=== PATIENT | male | born 1965 | race Caucasian/White ===

== ENCOUNTER 2024-06-09 10:55 | Inpatient (IN) | payer OTHER ==
[~2024-06-09] VITALS: Ht 172.7 cm; Wt 88.7 kg
[2024-06-09] VITALS (37 sets, daily range): BP systolic 111–152; BP diastolic 65–105; PULSE 85–118; RESP 12–28; TEMP 37.3–37.4; O2SAT 92–97
[2024-06-09 11:39] LABS: HEMATOCRIT. 47.2 % (42.0-52.0); HEMOGLOBIN. 15.9 g/dL (14.0-18.0); MEAN CORPUSCULAR HEMOGLOBIN 31.3 pg (28.0-32.0); MEAN CORPUSCULAR HGB CONC 33.8 g/dL (31.0-37.0); MEAN CORPUSCULAR VOLUME 92.8 fL (80.0-94.0); MEAN PLATELET VOLUME 7.8 fl (7.4-10.4); PLATELET 280 x1000/uL (130-400); RED BLOOD CELL COUNT 5.08 mill/uL (4.7-6.1); RED CELL DISTRIBUTION WIDTH 13.3 % (11.6-14.6); WHITE BLOOD COUNT 19.2 x1000/uL (4.5-11.0)
[2024-06-09 11:49] LABS: DIFFERENTIAL COMMENT 1
[2024-06-09] MEDS: ASPIRIN 81MG TABLET PO ONE (11:52)
[2024-06-09 11:53] LABS: PARTIAL THROMBOPLASTIN TIME 25.8 sec (23.4-31.0); PROTHROMBIN TIME 10.3 sec (9.6-11.0)
[2024-06-09 11:57] LABS: CHLORIDE 100 mEq/L (98-107); SODIUM 134 mEq/L (136-145)
[2024-06-09 11:58] LABS: CALCIUM 10.1 mg/dL (8.7-10.4); CARBON DIOXIDE 22 mEq/L (21-32)
[2024-06-09 12:03] LABS: GLUCOSE 255 mg/dL (70-105); UREA NITROGEN BLOOD 15 mg/dL (9-23)
[2024-06-09 12:19] LABS: TROPONIN I HIGH SENSITIVITY 14840 ng/L (3.0-53)
[2024-06-09] MEDS: HEPARIN 5000 UNITS/ML VIAL IV ONE (12:37)
[2024-06-09] MEDS ORDERED: HEPARIN 1000 UNITS/ML 10ML ONE ×2 (13:35→13:36)
[2024-06-09] MEDS ORDERED: IODIXANOL 320MG/ML 100 ML BOTTLE IV ONE ×2 (13:35→14:36)
[2024-06-09] MEDS ORDERED: LIDOCAINE HCL 1% 20ML VIAL ONE (13:39)
[2024-06-09] MEDS ORDERED: MIDAZOLAM HCL 2 MG/2 ML VIAL ONE (13:54)
[2024-06-09] MEDS ORDERED: FENTANYL CITRATE/PF 50MCG/ML 2ML VIAL ONE (13:54)
[2024-06-09] MEDS ORDERED: CLOPIDOGREL 75MG TABLET ONE (14:37)
[2024-06-09 15:55] LABS: GIANT PLATELETS FEW; PLATELET ESTIMATE NORMAL
[2024-06-09] MEDS ORDERED: ACETAMINOPHEN 325MG TABLET PO PRN (16:15)
[2024-06-09] MEDS ORDERED: ZOLPIDEM TARTRATE 5MG TABLET PO PRN (16:15)
[2024-06-09] MEDS ORDERED: MORPHINE SULFATE 2 MG/ML INJ (NOT FOR IM USE) IV PRN (16:15)
[2024-06-09] MEDS ORDERED: CLONIDINE 0.1MG TABLET PO PRN (16:15)
[2024-06-09] MEDS ORDERED: HYDROCODONE/ACETAMINOPHEN 5/325MG TABLET PO PRN (16:15)
[2024-06-09] MEDS ORDERED: ONDANSETRON HCL 4MG/2ML INJ IV PRN (16:15)
[2024-06-09] MEDS ORDERED: DEXTROSE 50% WATER 50ML SYRINGE IV PRN (16:15)
[2024-06-09] MEDS ORDERED: HYDRALAZINE 20MG/ML VIAL IV PRN (16:15)
[2024-06-09] MEDS: DEXT 5%/0.45% NACL 1000ML 1,000 ML IV SCH (16:55)
[2024-06-09] MEDS: BLOOD SUGAR DIAGNOSTIC STRIP TEST SCH (16:55)
[2024-06-09] MEDS: INSULIN LISPRO 100 UNITS/ML SUBCUT SCH (19:03)
[2024-06-09 20:58] LABS: *AMPHETAMINES SCREEN URINE NEGATIVE (NEGATIVE); *BARBITURATES SCREEN URINE NEGATIVE (NEGATIVE); *BENZODIAZEPINES SCREEN URINE PRESUMPTIVE POSITIVE (NEGATIVE); *COCAINE SCREEN URINE NEGATIVE (NEGATIVE); METHADONE URINE SCREEN NEGATIVE (NEGATIVE); OPIATES URINE SCREEN NEGATIVE (NEGATIVE)
[2024-06-09 20:59] LABS: CANNABINOID URINE SCREEN NEGATIVE (NEGATIVE); ECSTASY MDMA SCREEN URINE NEGATIVE (NEGATIVE); PHENCYCLIDINE URINE SCREEN NEGATIVE (NEGATIVE)
[2024-06-09] MEDS: PIPERACILLIN/TAZO 3.375G/50ML 50 ML IV SCH (21:42)
[2024-06-09] MEDS: ATORVASTATIN CALCIUM 40MG TABLET PO SCH (21:42)
[2024-06-10] VITALS (33 sets, daily range): BP systolic 103–155; BP diastolic 62–88; PULSE 80–107; RESP 12–29; TEMP 36.8–37.3; O2SAT 93–97
[2024-06-10 01:42] LABS: TROPONIN I HIGH SENSITIVITY 124692 ng/L (3.0-53)
[2024-06-10 06:13] LABS: CHLORIDE 103 mEq/L (98-107); POTASSIUM 3.5 mEq/L (3.5-5.1); SODIUM 136 mEq/L (136-145)
[2024-06-10 06:14] LABS: CARBON DIOXIDE 23 mEq/L (21-32)
[2024-06-10 06:15] LABS: CALCIUM 8.9 mg/dL (8.7-10.4)
[2024-06-10 06:16] LABS: BASOPHILS % 0.1 % (0.0-2.0); HEMATOCRIT. 47.4 % (42.0-52.0); HEMOGLOBIN. 15.9 g/dL (14.0-18.0); LYMPHOCYTES % 9.7 % (20.0-50.0); MEAN CORPUSCULAR HEMOGLOBIN 31.3 pg (28.0-32.0); MEAN CORPUSCULAR HGB CONC 33.6 g/dL (31.0-37.0); MEAN CORPUSCULAR VOLUME 93.2 fL (80.0-94.0); MEAN PLATELET VOLUME 8.6 fl (7.4-10.4); MONOCYTES % 5.7 % (2.0-8.0); NEUTROPHILS % 84.5 % (40.0-76.0); PLATELET 263 x1000/uL (130-400); RED BLOOD CELL COUNT 5.09 mill/uL (4.7-6.1); RED CELL DISTRIBUTION WIDTH 13.6 % (11.6-14.6); WHITE BLOOD COUNT 18.8 x1000/uL (4.5-11.0)
[2024-06-10 06:19] LABS: CREATININE 0.8 mg/dL (0.6-1.3); GLUCOSE 204 mg/dL (70-105)
[2024-06-10 06:20] LABS: UREA NITROGEN BLOOD 13 mg/dL (9-23)
[2024-06-10 07:04] LABS: TROPONIN I HIGH SENSITIVITY 94654 ng/L (3.0-53)
[2024-06-10] MEDS ORDERED: NALOXONE HCL 0.4MG/ML VIAL IV PRN (08:15)
[2024-06-10] MEDS: ASPIRIN 81MG TABLET PO SCH (10:27)
[2024-06-10] MEDS: PANTOPRAZOLE SODIUM 40 MG/VIAL IV SCH (10:27)
[2024-06-10] MEDS: CLOPIDOGREL 75MG TABLET PO SCH (10:27)
[2024-06-11] VITALS: BP 99/60; PULSE 94; RESP 22; TEMP 36.7; O2SAT 94
[2024-06-11 04:00] VITALS: BP 102/70; PULSE 95; RESP 23; TEMP 36.4; O2SAT 93
[2024-06-11 07:12] LABS: BASOPHILS % 0.1 % (0.0-2.0); EOSINOPHILS % 0.2 % (0.0-5.0); HEMATOCRIT. 45.1 % (42.0-52.0); HEMOGLOBIN. 15.6 g/dL (14.0-18.0); LYMPHOCYTES % 19.7 % (20.0-50.0); MEAN CORPUSCULAR HEMOGLOBIN 31.8 pg (28.0-32.0); MEAN CORPUSCULAR HGB CONC 34.5 g/dL (31.0-37.0); MEAN CORPUSCULAR VOLUME 92.2 fL (80.0-94.0); MONOCYTES % 8.2 % (2.0-8.0); NEUTROPHILS % 71.8 % (40.0-76.0); PLATELET 224 x1000/uL (130-400); RED BLOOD CELL COUNT 4.89 mill/uL (4.7-6.1); RED CELL DISTRIBUTION WIDTH 13.5 % (11.6-14.6); WHITE BLOOD COUNT 12.6 x1000/uL (4.5-11.0)
[2024-06-11 07:30] LABS: CALCIUM 8.8 mg/dL (8.7-10.4); CHLORIDE 102 mEq/L (98-107); POTASSIUM 3.4 mEq/L (3.5-5.1); SODIUM 136 mEq/L (136-145)
[2024-06-11 07:31] LABS: CARBON DIOXIDE 24 mEq/L (21-32)
[2024-06-11 07:36] LABS: CREATININE 0.9 mg/dL (0.6-1.3); GLUCOSE 157 mg/dL (70-105); UREA NITROGEN BLOOD 13 mg/dL (9-23)
[2024-06-11 08:00] VITALS: BP 114/81; PULSE 98; RESP 11; TEMP 36.7; O2SAT 97
[2024-06-11 12:00] VITALS: BP 116/75; PULSE 86; RESP 18; TEMP 36.8; O2SAT 98
[2024-06-11] MEDS ORDERED: LIP40 PO (13:20)
[2024-06-11] MEDS ORDERED: METO25TA6 MT (13:20)
[2024-06-11] MEDS ORDERED: METF-414 MT (13:20)
[2024-06-11] MEDS ORDERED: ASPI-1160 PO (13:20)
[2024-06-11] MEDS ORDERED: CLOP-31 PO (13:20)
[2024-06-11] MEDS ORDERED: LEVO-65 MT (13:21)
[2024-06-11 16:00] VITALS: BP 129/85; PULSE 107; RESP 23; TEMP 36.8; O2SAT 99
[2024-06-11 17:59] VITALS: BP 129/85; PULSE 91; TEMP 99.2; O2SAT 98
== END 2024-06-11 19:13 | disposition home or self-care (01) | DRG 322 ==
LOC: ER 10:55 → EDBEDREQSVC 13:24 → EDBEDREQ 13:24 → EDBEDREQTM 13:24 → CVICU 15:11 → 3WST 06-10 08:08
PROVIDERS: ADMIT Internal Medicine; ATTEND Internal Medicine
PROC: 027034Z Dilation of Coronary Artery, One Artery with Drug-eluting Intraluminal Device, Percutaneous Approach (ICD-10-PCS; principal; 2024-06-09)
PROC: 02C03ZZ Extirpation of Matter from Coronary Artery, One Artery, Percutaneous Approach (ICD-10-PCS; 2024-06-09)
PROC: 6A750Z5 Ultrasound Therapy of Heart, Single (ICD-10-PCS; 2024-06-09)
PROC: 4A023N7 Measurement of Cardiac Sampling and Pressure, Left Heart, Percutaneous Approach (ICD-10-PCS; 2024-06-09)
PROC: B2111ZZ Fluoroscopy of Multiple Coronary Arteries using Low Osmolar Contrast (ICD-10-PCS; 2024-06-09)
PROC: B2151ZZ Fluoroscopy of Left Heart using Low Osmolar Contrast (ICD-10-PCS; 2024-06-09)
DX: I21.4 Non-ST elevation (NSTEMI) myocardial infarction (principal); I16.1 Hypertensive emergency; I20.0 Unstable angina; F41.9 Anxiety disorder, unspecified; D72.829 Elevated white blood cell count, unspecified; E11.65 Type 2 diabetes mellitus with hyperglycemia
CPT/HCPCS: 36415; 71045; 80048; 80061; 80305; 82962; 83036; 83880; 84145; 84484; 85025; 85347; 86850; 86900; 92941; 92973; 92978; 93005; 93306; 93458; 93970; 99291; A4606; C1753; C1769; C1874; C1887; C1893; J1644; J1815; J2250; J2470; J2543; J3010; J3490; Q9967